=== PATIENT | male | born 1965 | race African-American/Black ===

== ENCOUNTER 2019-03-10 18:55 | Emergency (ER) | payer MEDICAID, OTHER ==
[~2019-03-10] VITALS: Ht 185.4 cm; Wt 102.0 kg
[2019-03-10] MEDS ORDERED: TETANUS, DIPHTHERIA, PERTUSSIS VAC/PF 0.5ML (>7YR OLD) IM ONE (20:15)
[2019-03-11 00:16] LABS: BASOPHILS % 0.8 % (0.0-2.0); EOSINOPHILS % 0.1 % (0.0-5.0); HEMATOCRIT. 38.9 % (42.0-52.0); HEMOGLOBIN. 13.2 g/dL (14.0-18.0); LYMPHOCYTES % 16.1 % (20.0-50.0); MEAN CORPUSCULAR HEMOGLOBIN 29.8 pg (28.0-32.0); MEAN CORPUSCULAR VOLUME 87.7 fL (80.0-94.0); MEAN PLATELET VOLUME 7.2 fl (7.4-10.4); MONOCYTES % 5.8 % (2.0-8.0); NEUTROPHILS % 77.2 % (40.0-76.0); PLATELET 220 x1000/uL (130-400); RED BLOOD CELL COUNT 4.44 mill/uL (4.7-6.1); RED CELL DISTRIBUTION WIDTH 13.3 % (11.6-14.6)
[2019-03-11 00:22] LABS: CHLORIDE 101 mEq/L (98-107)
[2019-03-11 00:26] LABS: ETHANOL BLOOD 250 mg/dL
[2019-03-11 00:30] LABS: *AMPHETAMINES SCREEN URINE NEGATIVE (NEGATIVE); *BARBITURATES SCREEN URINE NEGATIVE (NEGATIVE); *COCAINE SCREEN URINE NEGATIVE (NEGATIVE); METHADONE URINE SCREEN NEGATIVE (NEGATIVE); OPIATES URINE SCREEN NEGATIVE (NEGATIVE)
[2019-03-11 00:31] LABS: CANNABINOID URINE SCREEN NEGATIVE (NEGATIVE); PHENCYCLIDINE URINE SCREEN NEGATIVE (NEGATIVE)
[2019-03-11 00:33] LABS: *BENZODIAZEPINES SCREEN URINE NEGATIVE (NEGATIVE)
[2019-03-11] MEDS ORDERED: ACETAMINOPHEN 500MG TABLET PO ONE (04:30)
[2019-03-11] MEDS ORDERED: CHLORDIAZEPOXIDE 25MG CAPSULE PO ONE (10:15)
[2019-03-11 13:15] VITALS: BP 140/87
== END 2019-03-11 14:49 | disposition home or self-care (01) ==
LOC: ER 19:18
DX: F10.229 Alcohol dependence with intoxication, unspecified (principal); K04.7 Periapical abscess without sinus; R04.0 Epistaxis; W18.39XA Other fall on same level, initial encounter; Y93.89 Activity, other specified; Y92.89 Other specified places as the place of occurrence of the external cause; Y99.8 Other external cause status; Y90.8 Blood alcohol level of 240 mg/100 ml or more
CPT/HCPCS: 36415; 70450; 70486; 70551; 80053; 80305; 80320; 85025; 90471; 90715; 99284; A4217; Z7610; G0480

== ENCOUNTER 2019-09-24 19:21 | Inpatient (IN) | payer MEDICAID, OTHER ==
[~2019-09-24] VITALS: Ht 188 cm; Wt 108.9 kg
[2019-09-24] MEDS ORDERED: ONDANSETRON HCL 4MG/2ML INJ IV STA (19:53)
[2019-09-24] MEDS ORDERED: SODIUM CHLORIDE 0.9% 1,000 ML IV ONE (19:53)
[2019-09-24] MEDS ORDERED: FOLIC ACID 1 MG, THIAMINE HCL 100 MG, MVI, ADULT NO.1 10 ML in DEXTROSE 5% WATER 1,000 ML IV ONE ×4 (20:00)
[2019-09-24 20:15] LABS: BASOPHILS % 0.6 % (0.0-2.0); EOSINOPHILS % 0.3 % (0.0-5.0); HEMATOCRIT. 42.6 % (42.0-52.0); HEMOGLOBIN. 14.5 g/dL (14.0-18.0); LYMPHOCYTES % 8.8 % (20.0-50.0); MEAN CORPUSCULAR HEMOGLOBIN 29.4 pg (28.0-32.0); MEAN CORPUSCULAR VOLUME 86.2 fL (80.0-94.0); MEAN PLATELET VOLUME 7.7 fl (7.4-10.4); MONOCYTES % 10.7 % (2.0-8.0); NEUTROPHILS % 79.6 % (40.0-76.0); PLATELET 172 x1000/uL (130-400); RED BLOOD CELL COUNT 4.94 mill/uL (4.7-6.1); RED CELL DISTRIBUTION WIDTH 13.4 % (11.6-14.6)
[2019-09-24 20:24] LABS: PROTHROMBIN TIME 11.3 sec (9.6-11.0)
[2019-09-24 20:28] LABS: CHLORIDE 100 mEq/L (98-107)
[2019-09-24 20:33] LABS: ETHANOL BLOOD < 10 mg/dL
[2019-09-24 20:37] LABS: CREATINE KINASE 170 IU/L (39-308)
[2019-09-24] MEDS ORDERED: SODIUM CHLORIDE 0.9% 1000ML BAG (SEPSIS BOLUS) IV NR (21:15)
[2019-09-24] MEDS ORDERED: PIPERACILLIN/TAZ 3.375G PREMIX 50 ML IV NR (21:15)
[2019-09-25 03:20] VITALS: BP 139/74
[2019-09-25 04:00] VITALS: BP 139/74
[2019-09-25] MEDS ORDERED: ALBUTEROL 6.7GM HFA INHALER ORI PRN (04:45)
[2019-09-25] MEDS ORDERED: ALBUTEROL (0.083%) 2.5MG/3ML NEB HHN PRN (05:15)
[2019-09-25 08:00] VITALS: BP 143/83
[2019-09-25 08:26] LABS: BASOPHILS % 0.5 % (0.0-2.0); EOSINOPHILS % 0.1 % (0.0-5.0); HEMOGLOBIN. 13.7 g/dL (14.0-18.0); LYMPHOCYTES % 11.3 % (20.0-50.0); MEAN CORPUSCULAR HEMOGLOBIN 30.1 pg (28.0-32.0); MEAN CORPUSCULAR VOLUME 87.7 fL (80.0-94.0); MONOCYTES % 12.6 % (2.0-8.0); NEUTROPHILS % 75.5 % (40.0-76.0); PLATELET 160 x1000/uL (130-400); RED BLOOD CELL COUNT 4.57 mill/uL (4.7-6.1); RED CELL DISTRIBUTION WIDTH 13.7 % (11.6-14.6)
[2019-09-25 08:27] LABS: CHLORIDE 100 mEq/L (98-107)
[2019-09-25] MEDS: ZINC SULFATE 220 MG ( 50 ) CAPSULE PO SCH (08:46)
[2019-09-25] MEDS: THIAMINE HCL 100MG TABLET PO SCH (08:46)
[2019-09-25] MEDS: AZITHROMYCIN 500 MG TABLET PO SCH (08:46)
[2019-09-25] MEDS: MULTIVITAMINS,THER W-MINERALS TABLET PO SCH (08:46)
[2019-09-25] MEDS: ENOXAPARIN 30MG/0.3ML SYR SUBCUT SCH ×2 (08:47→20:18)
[2019-09-25] MEDS ORDERED: ENOXAPARIN 40MG/0.4ML SYR SUBCUT SCH (09:00)
[2019-09-25] MEDS ORDERED: ZINC SULFATE 220 MG ( 50 ) CAPSULE PO SCH (09:00)
[2019-09-25 12:00] VITALS: BP 98/73
[2019-09-25 16:00] VITALS: BP 110/74
[2019-09-25 20:00] VITALS: BP 139/79
[2019-09-26] VITALS: BP 122/82
[2019-09-26 04:00] VITALS: BP 121/75
[2019-09-26 08:00] VITALS: BP 148/117
[2019-09-26] MEDS: ENOXAPARIN 30MG/0.3ML SYR SUBCUT SCH (08:18)
[2019-09-26] MEDS: ZINC SULFATE 220 MG ( 50 ) CAPSULE PO SCH (08:18)
[2019-09-26] MEDS: MULTIVITAMINS,THER W-MINERALS TABLET PO SCH (08:18)
[2019-09-26] MEDS: AZITHROMYCIN 500 MG TABLET PO SCH (08:18)
[2019-09-26] MEDS: THIAMINE HCL 100MG TABLET PO SCH (08:18)
[2019-09-26] MEDS ORDERED: ASPIRIN 81MG TABLET PO SCH (09:00)
[2019-09-26] MEDS ORDERED: THIAMINE HCL 100MG TABLET PO SCH (09:00)
[2019-09-26 12:00] VITALS: BP 123/86
[2019-09-26 13:10] LABS: HEPATITIS B SURFACE ANTIGEN NEGATIVE
[2019-09-26] MEDS ORDERED: LORAZEPAM 2MG/ML CPJ IV PRN (13:15)
[2019-09-26 13:36] LABS: HEPATITIS A AB IGM NEGATIVE (NEGATIVE)
[2019-09-26 15:13] VITALS: BP 129/76
[2019-09-26] MEDS ORDERED: FOLI-43 MT (15:25)
[2019-09-26] MEDS ORDERED: THIA100T88 MT (15:25)
[2019-09-26 16:00] VITALS: BP 129/76
== END 2019-09-26 17:00 | disposition home or self-care (01) | DRG 52 ==
LOC: ER 19:37 → EDBEDREQTM 21:07 → EDBEDREQSVC 21:07 → MICUSO 21:47 → EDBEDREQTM 21:55 → EDBEDREQ 21:55 → EDBEDREQSVC 21:55 → 5WST 09-25 04:44
PROVIDERS: ADMIT Internal Medicine; ATTEND Internal Medicine
DX: G93.41 Metabolic encephalopathy (principal); E87.1 Hypo-osmolality and hyponatremia; E87.2 Acidosis; R74.0 Nonspecific elevation of levels of transaminase and lactic acid dehydrogenase [LDH]; D72.819 Decreased white blood cell count, unspecified; E78.5 Hyperlipidemia, unspecified; F17.200 Nicotine dependence, unspecified, uncomplicated; Z86.73 Personal history of transient ischemic attack (TIA), and cerebral infarction without residual deficits; Z72.89 Other problems related to lifestyle
CPT/HCPCS: 36415; 70551; 71045; 80048; 80053; 80061; 80320; 82140; 82550; 83605; 84145; 84484; 85025; 86705; 86709; 86803; 87340; 93005; 96365; 97161; 99291; J1650; J2060; J2405; J2543; J3411; J3490; J7030; J7070; G0480